=== PATIENT | male | born 1970 | race African-American/Black ===

== ENCOUNTER 2020-11-29 14:57 | Emergency (ER) | payer BC ==
[2020-11-29 22:19] LABS: SARS-CoV-2 MS2 Positive; SARS-CoV-2 N Gene Positive; SARS-CoV-2 S Gene Positive; SARS-CoV-2 by NAA DETECTED (NotDetected); SARS-CoV-2 orf1ab Positive
== END 2020-11-29 15:45 | disposition home or self-care (01) ==
LOC: ERS 14:57
DX: U07.1 COVID-19 (principal); E11.9 Type 2 diabetes mellitus without complications
CPT/HCPCS: 87635; 99283; U0003

== ENCOUNTER 2024-09-26 19:59 | Observation (INO) | payer OTHER ==
[2024-09-26 20:35] LABS: #Basophils Less than 0.03 10x3/uL (0.0-0.2); #Eosinophils Less than 0.03 10x3/uL (0.0-0.7); %Basophils 0.2 % (0.0-1.0); %Eosinophils 0.3 % (0.0-10.0); %Lymphocytes 36.3 % (21.0-51.0); %Monocytes 8.4 % (0.0-10.0); %Neutrophils 54.6 % (42.0-75.0); Hematocrit 41.6 % (42.0-52.0); Hemoglobin 13.3 g/dL (14.0-18.0); Mean Corpuscular Hemoglobin 27.8 pg (27.0-31.0); Mean Platelet Volume 10.7 fL (7.4-10.4); Platelet Count 174 10x3/uL (130-400); RBC Distribution Width 13.3 % (11.5-14.5); Red Blood Cell (RBC) Count 4.78 mill/uL (4.70-6.10)
[2024-09-26 20:52] LABS: ALT (SGPT) 77 U/L (8-55); AST (SGOT) 54 U/L (5-34); Albumin 3.7 g/dL (3.5-5.0); Alkaline Phosphatase 93 U/L (40-110); Anion Gap 17 mmol/L (10-20); BUN (Urea Nitrogen) 30 mg/dL (8.4-25.7); Bilirubin, Total 0.4 mg/dL (0.2-1.2); Calc. Creatinine Clearance 0 mL/min (70-130); Calcium 9.7 mg/dL (7.8-10.44); Carbon Dioxide 23 mmol/L (22-29); Chloride 97 mmol/L (98-107); Estimated GFR 41; Glucose 531 mg/dL (70-105); Potassium 4.2 mmol/L (3.5-5.1); Protein, Total 7.7 g/dL (6.0-8.3); Sodium 133 mmol/L (136-145)
[2024-09-26 20:55] LABS: Troponin I 0.017 ng/mL (< 0.028)
[2024-09-26] MEDS ORDERED: Aspirin Chewable 81 MG TAB ONE (22:32)
[2024-09-26] MEDS ORDERED: Dextrose 5% in Water 1,000 ML IV PRN (22:51)
[2024-09-26] MEDS ORDERED: Dextrose 50% Abboject 50 ML SYRINGE SLOW IVP PRN (22:51)
[2024-09-26] MEDS ORDERED: Glucagon 1 MG/ML KIT IM PRN (22:51)
[2024-09-26] MEDS ORDERED: Lorazepam 2 MG/ML VIAL SLOW IVP PRN (23:52)
[2024-09-26] MEDS ORDERED: levETIRAcetam 500 MG (5 mL) VIAL ONE (23:52)
[2024-09-27] MEDS: Lactated Ringer's 1,000 ML IV SCH (00:51)
[2024-09-27] MEDS: Insulin Regular, Human 100 UNIT/ML 10 ML VIAL SC PRN ×2 (01:05→12:00)
[2024-09-27 03:39] VITALS: BMI 74.6
[2024-09-27 05:13] LABS: Anion Gap 13 mmol/L (10-20); BUN (Urea Nitrogen) 21 mg/dL (8.4-25.7); Calc. Creatinine Clearance 198 mL/min (70-130); Calcium 9.2 mg/dL (7.8-10.44); Carbon Dioxide 26 mmol/L (22-29); Chloride 103 mmol/L (98-107); Estimated GFR 67; Glucose 308 mg/dL (70-105); Sodium 138 mmol/L (136-145)
[2024-09-27] MEDS: levETIRAcetam 500 MG TAB PO SCH (08:53)
[2024-09-27] MEDS: FLU (Fluarix Triv) TS24-25(6MOS UP)/PF 45 MCG/0.5 ML Syringe IM ONE (08:54)
[2024-09-27] MEDS: Aspirin 81 mg Enteric Coated Tablet PO SCH (08:54)
[2024-09-27] MEDS: Amlodipine 10 MG TAB PO SCH (08:54)
[2024-09-27] MEDS: Labetalol HCl 100 MG/20 ML VIAL SLOW IVP PRN (09:04)
[2024-09-27 12:49] VITALS: TEMP 98.1
[2024-09-27] MEDS ORDERED: Magnevist 469MG/ML 20 ML VIAL ONE ×2 (13:55)
[2024-09-27 16:11] VITALS: BP 156/92
== END 2024-09-27 17:53 | disposition home or self-care (01) ==
LOC: ERS 19:59 → 2SE 23:14
PROVIDERS: ADMIT Student in an Organized Health Care Education/Training Program; ATTEND Family Medicine
DX: G40.009 Localization-related (focal) (partial) idiopathic epilepsy and epileptic syndromes with seizures of localized onset, not intractable, without status epilepticus (principal); E11.65 Type 2 diabetes mellitus with hyperglycemia; I10 Essential (primary) hypertension; I16.0 Hypertensive urgency; N17.9 Acute kidney failure, unspecified; Z98.890 Other specified postprocedural states; Z91.013 Allergy to seafood; Z79.82 Long term (current) use of aspirin; Z79.4 Long term (current) use of insulin; Z79.899 Other long term (current) drug therapy
CPT/HCPCS: 36415; 36416; 70450; 70553; 71045; 72156; 76376; 80048; 80053; 83735; 84443; 84484; 85025; 90656; 93005; 96361; 96374; 96375; G0378; J1953; J7120

== ENCOUNTER 2024-10-12 01:51 | Emergency (ER) | payer OTHER ==
[2024-10-12 02:41] LABS: #Basophils Less than 0.03 10x3/uL (0.0-0.2); #Eosinophils Less than 0.03 10x3/uL (0.0-0.7); %Basophils 0.2 % (0.0-1.0); %Eosinophils 0.5 % (0.0-10.0); %Lymphocytes 33.4 % (21.0-51.0); %Monocytes 8.1 % (0.0-10.0); %Neutrophils 57.6 % (42.0-75.0); Hematocrit 36.4 % (42.0-52.0); Hemoglobin 11.7 g/dL (14.0-18.0); Mean Corpuscular HGB CONC 32.1 g/dL (32.0-36.0); Mean Corpuscular Hemoglobin 27.6 pg (27.0-31.0); Mean Corpuscular Volume 85.8 fL (78.0-98.0); Platelet Count 153 10x3/uL (130-400); RBC Distribution Width 12.6 % (11.5-14.5); Red Blood Cell (RBC) Count 4.24 mill/uL (4.70-6.10)
[2024-10-12] MEDS ORDERED: levETIRAcetam 500 MG (5 mL) VIAL ONE (02:47)
[2024-10-12] MEDS ORDERED: Diazepam 10 MG/2 ML SYRINGE ONE (02:47)
[2024-10-12 03:16] LABS: ALT (SGPT) 20 U/L (8-55); AST (SGOT) 17 U/L (5-34); Albumin 3.9 g/dL (3.5-5.0); Alkaline Phosphatase 76 U/L (40-110); Anion Gap 14 mmol/L (10-20); BUN (Urea Nitrogen) 35 mg/dL (8.4-25.7); Bilirubin, Total 0.2 mg/dL (0.2-1.2); Calc. Creatinine Clearance 0 mL/min (70-130); Calcium 9.9 mg/dL (7.8-10.44); Carbon Dioxide 23 mmol/L (22-29); Chloride 99 mmol/L (98-107); Estimated GFR 50; Globulin 3.9 g/dL (2.4-3.5); Glucose 287 mg/dL (70-105); Potassium 4.3 mmol/L (3.5-5.1); Protein, Total 7.8 g/dL (6.0-8.3); Sodium 132 mmol/L (136-145)
== END 2024-10-12 04:05 | disposition home or self-care (01) ==
LOC: ERS 01:51
DX: G40.109 Localization-related (focal) (partial) symptomatic epilepsy and epileptic syndromes with simple partial seizures, not intractable, without status epilepticus (principal); I10 Essential (primary) hypertension; E11.9 Type 2 diabetes mellitus without complications; Z79.899 Other long term (current) drug therapy
CPT/HCPCS: 36415; 80053; 82010; 83735; 85025; 96374; 96375; J1953; J3360